=== PATIENT | female | born 2000 | race Caucasian/White ===

== ENCOUNTER 2020-03-16 06:44 | Emergency (ER) | payer OTHER, SELFPAY ==
[2020-03-16 06:53] VITALS: BP 159/84; PULSE 83; RESP 16; TEMP 36.2; O2SAT 96; BMI 39.8
--- NOTE | 2020-03-16 07:14 | ED_ITS ---
HPI - Abdominal Pain General: Chief Complaint: Abdominal Pain Stated Complaint: BLOOD IN STOOL AND BACK PAIN Time Seen by Provider: 03/16/20 07:06 History of Present Illness: HPI narrative: Patient is a 20-year-old female who comes to the ED with left sided lower back pain and blood in the stool. Patient says this morning when she woke up she went to the bathroom and had a bowel movement. She said there was a little discomfort and mild straining when she had her bowel movement. She said there was a lot of red blood in the toilet afterwards. Patient is only had one episode of blood in her stool. Patient does complain of recent rectal itching. Patient said a couple days ago she had a bowel movement and when she wiped there was bright red blood, but no red blood in stool or toilet. She also describes having back pain that is predominantly on the left side and is located between upper lumbar and lower thoracic region. She rates the pain a 6 out of 10 and has not had any pain meds such as Tylenol or ibuprofen before she arrived to the ED. Endorses some nausea. Denies any fever, constipation, dysuria, hematuria, vaginal discharge or vaginal bleeding. Patient says she has POCS and rarely has periods. Denies being on her period. Denies any preceding symptoms last night or the day before. Associated Symptoms: Reports hematochezia; Denies chills, constipation, diarrhea, dysuria, fever(s), hematuria, nausea and vomiting Review of Systems Const: Denies: fever(s), chills or fatigue Eyes: Denies: change in vision or eye discomfort ENMT: Denies: throat pain, odynophagia, nasal discharge or nasal congestion Card: Denies: chest pain, palpitations, edema, swelling of feet/ankles, dyspnea on exertion or orthopnea Resp: Denies: dyspnea, productive cough or non-productive cough GI: Reports: pain on defecation, rectal pain, rectal itching and hematochezia; Denies: abdominal pain, nausea, vomiting, diarrhea or constipation : Denies: flank pain, dysuria or hematuria Musc: Reports: back pain (Left side- between upper lumbar and lower thoracic); Denies: neck pain or extremity swelling Skin/Breast: Denies: rash or new lesions Neuro: Denies: headache(s), numbness in extremities or weakness in extremities [facility] ED PFSH: Social History Smoking and tobacco status: never smoked Physical Exam Const: COMMON NORMALS: no acute distress, patient oriented x3 and alert GENERAL APPEARANCE: cooperative and comfortable NUTRITIONAL APPEARANCE: overweight HENMT: COMMON NORMALS: normocephalic HEAD & SCALP: normocephalic MOUTH: Normal oral and palatal mucosa present THROAT: posterior oropharynx normal and uvula midline Eye: COMMON NORMALS: Equal, round and reactive pupils present PUPIL: Yes Equal, round and reactive pupils present Neck/C-Spine: COMMON NORMALS: supple GENERAL: Yes normal visual inspection Resp: COMMON NORMALS: normal respiratory effort, No retractions, No use of accessory muscles and clear to auscultation bilaterally AUSCULTATION: clear to auscultation bilaterally Cardio: COMMON NORMALS: regular rate, regular rhythm, S1 normal heart sound present, S2 normal heart sound present, No gallops present (Cardio), No clicks present (Cardio), No murmurs present (Cardio) and Peripheral pulses 2+ throughout RATE: regular rate RHYTHM: regular rhythm HEART SOUNDS: S1 normal heart sound present and S2 normal heart sound present PERIPHERAL PULSES: Peripheral pulses 2+ throughout GI: COMMON NORMALS: Normal to inspection, nondistended, normoactive bowel sounds present, Soft to palpation, non-tender and no masses INSPECTION: Yes central obesity AUSCULTATION: Yes normoactive bowel sounds PALPATION: Yes Soft to palpation RECTAL EXAM: visual inspection normal (No visible red blood.), normal sphincter tone, heme positive stool (No visible blood seen upon digital rectal exam. Fecal occult test was positive for blood.) trace, External hemorrhoid(s) present, Internal hemorrhoid(s) present and hemorrhoids External hemorrhoid(s): Yes Internal hemorrhoid(s): Yes : BLADDER/KIDNEY EXAM: Yes CVA tenderness on the left Back/Pelvis: GENERAL BACK: Yes CVA tenderness Extremity: COMMON NORMALS: normal to inspection and no pedal edema Neuro: COMMON NORMALS: patient oriented x3 SENSORIUM/ORIENTATION: Yes alert GAIT: Yes Normal gait present Skin: COMMON NORMALS: no rashes or lesions noted GENERAL SKIN EXAM: no rashes or lesions noted and dry skin Procedures Stool Hemoccult Procedural Steps Taken: stool placed in appropriate test area, developer placed on stool and control areas and controls appropriately positive and negative Hemoccult result: positive Additional Comments: Digital rectal exam was performed to obtain stool sample for test. Course Vital Signs: Vital signs: Vital Signs Temperature 97.1 F L 03/16/20 06:53 Pulse Rate 83 03/16/20 06:53 Respiratory Rate 16 03/16/20 06:53 Blood Pressure 159/84 03/16/20 06:53 Pulse Oximetry 96 03/16/20 06:53 MDM - Abdominal Pain MDM Narrative: Medical decision making narrative: Patient is a 20-year-old female comes to the ED with left flank pain and blood in stool and on toilet paper when she wiped. Patient also states she has had some rectal itching recently. Physical exam was remarkable for left CVA tenderness. Digital rectal exam showed internal and external hemorrhoids. No visible red blood. CBC and CMP were unremarkable. UA showed blood in the urine. Fecal Hemoccult test was positive. CT kidney stone. Patient was diagnosed with hemorrhoids and lumbar strain.. She was told to eat high-fiber foods such as fruits and vegetables and to try to get 20 to 30 g of fiber daily. Drink about 1/2 to 2 L of water per day. Take sitz bath and to apply [id number] 1% hydrocortisone cream on rectum to help with itching. Take ibuprofen for back pain. Apply cold pack or heating pad for relief and stretch lower back daily. Follow-up with your PCP Lab Data: Attestation: I reviewed the patient's lab results. Labs: Lab Results 03/16/20 03/16/20 03/16/20 Range/Units 07:16 07:16 07:16 WBC 9.0 (4.5-13.0) 10^3/ uL RBC 4.49 (4.1-5.3) 10^6/u L Hgb 12.9 (11.5-15.3) g/dL Hct 40.7 (37.0-47.0) % MCV 90.6 (81-99) fL MCH 28.7 (28.0-34.0) pg MCHC 31.7 (30.0-36.0) g/dL RDW 12.7 (12.1-15.1) % Plt Count 338 (130-400) 10^3/c mm MPV 10.5 H (7.4-10.4) fL Neut % (Auto) 51.6 % Lymph % (Auto) 40.5 % [place] % (Auto) 5.7 % Eos % (Auto) 1.0 % Baso % (Auto) 0.6 % Neut # (Auto) 4.6 (1.8-8.0) 10^3/u L Lymph # (Auto) 3.6 (1.5-6.5) 10^3/u L [place] # (Auto) 0.5 (0.2-0.9) 10^3/u L Eos # (Auto) 0.1 (0.0-0.8) 10^3/u L Baso # (Auto) 0.1 (0.0-0.1) 10^3/u L Nucleated RBC % (a uto) 0 % Nucleated RBCs # 0.0 /100WBC Sodium 141 (136-145) mmol/L Potassium 4.2 (3.5-5.1) mmol/L Chloride 105 (98-107) mmol/L Carbon Dioxide 24 (22-29) mmol/L Anion Gap 16.2 (5-19) BUN 12 (6-20) mg/dL Creatinine 0.6 (0.5-0.9) mg/dL GFR Calculation 127.5 (90-130) mL/min Glucose 112 (65-115) mg/dL Calculated Osmolal ity 289 (285-295) mOsm/k g Calcium 9.8 (8.5-10.5) mg/dL Total Bilirubin 0.2 (0.15-1.2) mg/dL AST 14 (0-32) U/L ALT 15 (0-33) U/L Alkaline Phosphata se 70 (35-105) IU/L Total Protein 7.3 (6.6-8.7) g/dL Albumin 4.4 (3.5-5.2) g/dL Globulin 2.9 (1.3-4.6) g/dL Lipase 33 (13-60) U/L HCG, Qual Negative (Negative) Urine Color (Yellow) Urine Appearance (CLEAR) Urine pH (5-7) Ur Specific Gravit y (1.005-1.030) Urine Protein (Negative) Urine Glucose (UA) (Normal) Urine Ketones (Negative) Urine Blood (Negative) Urine Nitrate (Negative) Urine Bilirubin (NEGATIVE) Urine Urobilinogen (Negative) mg/dL Ur Leukocyte Jackie ase (Negative) Urine RBC (0-2) /hpf Urine WBC (0-5) /hpf Ur Squamous Epith Cells (0-5) Urine Bacteria (NONE) Urine Mucus 03/16/20 Range/Units 07:43 WBC (4.5-13.0) 10^3/ uL RBC (4.1-5.3) 10^6/u L Hgb (11.5-15.3) g/dL Hct (37.0-47.0) % MCV (81-99) fL MCH (28.0-34.0) pg MCHC (30.0-36.0) g/dL RDW (12.1-15.1) % Plt Count (130-400) 10^3/c mm MPV (7.4-10.4) fL Neut % (Auto) % Lymph % (Auto) % [place] % (Auto) % Eos % (Auto) % Baso % (Auto) % Neut # (Auto) (1.8-8.0) 10^3/u L Lymph # (Auto) (1.5-6.5) 10^3/u L [place] # (Auto) (0.2-0.9) 10^3/u L Eos # (Auto) (0.0-0.8) 10^3/u L Baso # (Auto) (0.0-0.1) 10^3/u L Nucleated RBC % (a uto) % Nucleated RBCs # /100WBC Sodium (136-145) mmol/L Potassium (3.5-5.1) mmol/L Chloride (98-107) mmol/L Carbon Dioxide (22-29) mmol/L Anion Gap (5-19) BUN (6-20) mg/dL Creatinine (0.5-0.9) mg/dL GFR Calculation (90-130) mL/min Glucose (65-115) mg/dL Calculated Osmolal ity (285-295) mOsm/k g Calcium (8.5-10.5) mg/dL Total Bilirubin (0.15-1.2) mg/dL AST (0-32) U/L ALT (0-33) U/L Alkaline Phosphata se (35-105) IU/L Total Protein (6.6-8.7) g/dL Albumin (3.5-5.2) g/dL Globulin (1.3-4.6) g/dL Lipase (13-60) U/L HCG, Qual (Negative) Urine Color Yellow (Yellow) Urine Appearance Clear (CLEAR) Urine pH 5.0 (5-7) Ur Specific Gravit y 1.025 (1.005-1.030) Urine Protein Neg (Negative) Urine Glucose (UA) Norm (Normal) Urine Ketones Negative (Negative) Urine Blood 2+ H (Negative) Urine Nitrate Negative (Negative) Urine Bilirubin Neg (NEGATIVE) Urine Urobilinogen Norm (Negative) mg/dL Ur Leukocyte Jackie ase Negative (Negative) Urine RBC 0-4 H (0-2) /hpf Urine WBC None (0-5) /hpf Ur Squamous Epith Cells 10-15 H (0-5) Urine Bacteria 1+ H (NONE) Urine Mucus Trace Imaging Data ^: CT Abd/Pel: Attestation: I personally reviewed and interpreted this imaging study as follows: Radiologist's impression: [place] [address] CT Scan Report Signed Patient: Leora Farooq Unit #: [id number] : 2000 Age/Sex: 20 / F ADM Date: 03/16/20 Loc: ER Room/Bed: Attending Dr: Ordering Provider/Ordering MD: Antonio Merino Date of Service: 03/16/20 Procedure(s): CT kidney stone 77719 Accession Number(s): [id number] Report Number: [id number] WS: [id number] CT kidney stone [id number] REASON FOR EXAM: Left flank pain and blood in the urine. IV CONTRAST ADMINISTERED: None. TOTAL EXAM DLP: 1495.[address] scans at [facility] use at least one of these dose optimization techniques: automated exposure control; mA and/or kV adjustment per patient size (includes targeted exams where dose is matched to clinical indication); or iterative reconstruction. FINDINGS: The lower lung joaquin were normal. The liver showed no infiltrating changes. The gallbladder was normal. The pancreas head, body, tail were normal. The spleen and stomach aorta inferior vena cava were normal. Both the right and left adrenal glands are normal. Both kidneys were smooth in outline showed no masses. No stones or hydronephrosis or hydroureters. The ureters were patent down to the bladder. The large and small bowel patterns were normal. Retroperitoneal area was normal. In the pelvis no diverticulosis or diverticulitis. The uterus was normal in size deviated slightly to the left of midline in the ovaries appear to be normal. The urinary bladder show no filling defects or masses. The rectum was normal. CT/CT kidney stone [id number] IMPRESSION: Normal CT of the abdomen and pelvis No evidence of abnormalities of the kidneys ureter bladder. Dictated By: Jakob Bates DO Signed By: Jakob Bates DO Signed Date/Time: 03/16/20846 DD/ 2 Discharge Plan Discharge Patient Disposition: Home, Self-Care Clinical Impression: Hemorrhoids Qualifiers: Hemorrhoid type: first degree Qualified Code(s): K64.0 - First degree hemorrhoids Lumbar strain Qualifiers: Encounter type: initial encounter Qualified Code(s): S39.012A - Strain of muscle, fascia and tendon of lower back, initial encounter Condition: Stable Discharge Orders: Discharge Order (Routine); Ordered 03/16/20 Ordered By: Antonio Merino Referrals: Elijah Arevalo DO [Primary Care Provider] - Discharge Diet: As Directed Discharge Activity: Resume usual activity Patient Instructions: Hemorrhoids (ED), Low Back Strain (ED) Activity Restrictions/Additional Instructions: Call your PCP and set up a follow-up appointment in 7 to 10 days for reevaluation. Take sitz bath daily and apply [id number] 1% hydrocortisone cream to rectum to help with itching. Eat a high-fiber diet (20-30g daily), including fruits and vegetables and drink plenty of water daily. Take ibuprofen to help with back pain and apply cold pack and/or heat pad on back to help with symptoms. Coding Level of Care Code ED Bailer Operators Supervisor for Sandeep Fwd Exam Comprehensive
[2020-03-16 07:28] LABS: Basophils # 0.1 10^3/uL (0.0-0.1); Basophils % 0.6 %; Eosinophils # 0.1 10^3/uL (0.0-0.8); Hematocrit 40.7 % (37.0-47.0); Hemoglobin 12.9 g/dL (11.5-15.3); Lymphocytes # 3.6 10^3/uL (1.5-6.5); Lymphocytes % 40.5 %; Mean Corpuscular HGB Conc 31.7 g/dL (30.0-36.0); Mean Corpuscular Hemoglobin 28.7 pg (28.0-34.0); Mean Corpuscular Volume 90.6 fL (81-99); Mean Platelet Volume 10.5 fL (7.4-10.4); Monocytes # 0.5 10^3/uL (0.2-0.9); Monocytes % 5.7 %; Neutrophils # 4.6 10^3/uL (1.8-8.0); Neutrophils % 51.6 %; Nucleated Red Blood Cells % 0 %; Platelet Count 338 10^3/cmm (130-400); Red Blood Count 4.49 10^6/uL (4.1-5.3); Red Cell Distribution Width 12.7 % (12.1-15.1)
[2020-03-16 07:38] LABS: HCG, Serum Qual Negative (Negative)
[2020-03-16 07:45] LABS: Alanine Aminotransferase 15 U/L (0-33); Albumin Level 4.4 g/dL (3.5-5.2); Alkaline Phosphatase 70 IU/L (35-105); Anion Gap 16.2 (5-19); Aspartate Amino Transferase 14 U/L (0-32); Blood Urea Nitrogen 12 mg/dL (6-20); Calcium 9.8 mg/dL (8.5-10.5); Carbon Dioxide 24 mmol/L (22-29); Chloride 105 mmol/L (98-107); Globulin 2.9 g/dL (1.3-4.6); Glomerular Filtration Rate 127.5 mL/min (90-130); Glucose 112 mg/dL (65-115); Lipase 33 U/L (13-60); Osmolality Calculated 289 mOsm/kg (285-295); Potassium 4.2 mmol/L (3.5-5.1); Sodium 141 mmol/L (136-145); Total Bilirubin 0.2 mg/dL (0.15-1.2); Total Protein 7.3 g/dL (6.6-8.7)
[2020-03-16] MEDS: ondansetron 2 mg/ML SDV 2 mL 4 MG IVP (07:47)
[2020-03-16] MEDS: sodium chloride 0.9% 1,000 ML 999 ML IV (07:47)
[2020-03-16] MEDS: ibuprofen 600 mg Tablet PO (08:05)
[2020-03-16 08:25] LABS: Bilirubin Urine Neg (NEGATIVE); Blood Urine 2+ (Negative); Glucose Urine UA Norm (Normal); Ketones Urine Negative (Negative); Leukocyte Esterase Urine Negative (Negative); Nitrate Urine Negative (Negative); Protein Urine Neg (Negative); Specific Gravity, Urine 1.025 (1.005-1.030); Urine Appearance Clear (CLEAR); Urine Color Yellow (Yellow); Urobilinogen Urine Norm (Negative)
--- NOTE | 2020-03-16 08:30 | CT_ITS ---
WS: [id number] CT kidney stone [id number] REASON FOR EXAM: Left flank pain and blood in the urine. IV CONTRAST ADMINISTERED: None. TOTAL EXAM DLP: 1495.[address] scans at [facility] use at least one of these dose optimization techniques: automat ed exposure control; mA and/or kV adjustment per patient size (includes targeted exams where dose is matched to clinical indication); or iterative reconstruction. FINDINGS: The lower lung joaquin were normal. The liver showed no infiltrating changes. The gallbladder was normal. The pancreas head, body, tail were normal. The spleen and stomach aorta inferior vena cava were normal. Both the right and left adrenal glands are normal. Both kidneys were smooth in outline showed no masses. No stones or hydronephrosis or hydroureters. The ureters were patent down to the bladder. The large and small bowel patterns were normal. Retroperitoneal area was normal. In the pelvis no diverticulosis or diverticulitis. The uterus was normal in size deviated slightly to the left of midline in the ovaries appear to be normal. The urinary bladder show no filling defects or masses. The rectum was normal. CT/CT kidney stone [id number] IMPRESSION: Normal CT of the abdomen and pelvis No evidence of abnormalities of the kidneys ureter bladder.
[2020-03-16 08:37] LABS: Add Urine Culture? No; Bacteria Urine 1+; Mucus Urine TRACE; RBC Urine 0-4 /hpf (0-2)
--- NOTE | 2020-03-16 08:54 | PC.NURSE ---
Chaperoned rectal exam with ALF Gillespie. Hemoccult mildly positive.
--- NOTE | 2020-03-16 08:55 | PC.NURSE ---
Read and agree with assessment
[2020-03-16 09:12] VITALS: BP 136/82; PULSE 68; RESP 18; O2SAT 97
== END 2020-03-16 09:12 | disposition home or self-care (01) ==
PROVIDERS: Emergency Provider Physician Assistant; PCP Electrodiagnostic Medicine
DX: S39.012A Strain of muscle, fascia and tendon of lower back, initial encounter (principal); K64.0 First degree hemorrhoids
CPT/HCPCS: 12345; 74176; 80053; 81001; 82272; 83690; 84703; 85025; 96361; 96374; 96375; 99282; 99283; J2405; J7030

== ENCOUNTER → 2020-08-14 10:05 | Outpatient (BNVA) | payer OTHER, SELFPAY | PROVIDERS: PCP Electrodiagnostic Medicine; Visit Provider Nurse Practitioner Family | DX: J02.9 Acute pharyngitis, unspecified (principal) | CPT/HCPCS: 87071; 87880 ==

== ENCOUNTER 2024-08-05 21:19 | Emergency (ER) | payer OTHER, SELFPAY ==
--- NOTE | 2024-08-05 21:21 | XRR_ITS ---
PROCEDURE INFORMATION: Exam: XR Chest Exam date and time: 08/05/2024 9:40 PM Age: 24 years old Clinical indication: Pain; Chest pressure; Additional info: Chest pain TECHNIQUE: Imaging protocol: Radiologic exam of the chest. Views: 1 view. COMPARISON: CT kidney stone [id number] 03/16/2020 8:32 AM FINDINGS: Lungs: Unremarkable. No consolidation. Pleural spaces: Unremarkable. No pleural effusion. No pneumothorax. Heart/Mediastinum: Unremarkable. No cardiomegaly. Bones/joints: Unremarkable. XR/XR chest 1V portable [id number] IMPRESSION: No acute findings.
--- NOTE | 2024-08-05 21:21 | ECG_ITS ---
[facility] [employer] Test Date: 2024-08-05 Pat Name: Leora Farooq Department: Room: Gender: Female Cider Maker: : 2000 Requested By: Moises Gabriel Order Number: [id number] Navid MD: Farhad Aguirre M.D. Measurements Intervals [place] Rate: 90 P: 14 ND: 128 QRS: -12 QRSD: 86 T: 16 QT: 370 QTc: 455 Interpretive Statements SINUS RHYTHM LOW QRS VOLTAGE IN PRECORDIAL LEADS [QRS DEFLECTION < 1.0 mV IN CHEST LEADS] POSSIBLE ANTERIOR MYOCARDIAL INFARCTION , PROBABLY OLD [30 ms Q WAVE IN V3/V4, OR R < 0.2 mV IN V4] No previous ECG available for comparison Electronically Signed On 08-07-2024 21:33:52 CAUSTICISER by Farhad Aguirre M.D. [email or web address]
[2024-08-05 21:23] VITALS: BP 137/84; PULSE 89; RESP 17; TEMP 36.9; O2SAT 93; BMI 45.3
[2024-08-05 21:43] VITALS: BP 145/98; PULSE 101; RESP 13; O2SAT 100
--- NOTE | 2024-08-05 22:02 | ED_ITS ---
HPI - Chest Pain 2 General: Chief Complaint: Chest Pain Stated Complaint: chest pain Time Seen by Provider: 08/05/24 21:20 History of Present Illness: Presents to the ER with complaints of intermittent left-sided chest pain that is worse when she inhales, radiates down the left side of her chest. Chest pain started about 30 minutes prior to arrival. Patient does report cardiac history with prior CO in January of this year. Patient denies using any nitro or aspirin prior to arrival. Patient is a diabetic. Patient said the pain is almost resolved now. But is reproducible with taking a big deep breath or palpation. Related Data Home Medications Medication Instructions Recorded Confirmed control PO 08/14/20 08/14/20 metformin 500 mg tablet 500 mg PO BID 08/14/20 08/14/20 Allergies Allergy/AdvReac Type Severity Reaction Status Date / Time No Known Allergies Allergy Verified 08/05/24 21:37 Review of Systems 2 General: Reports: 10 or more systems reviewed and unremarkable except in HPI and below PFSH ED 2 PFSH: Social History Smoking and tobacco/nicotine status: never used tobacco/nicotine Physical Exam 2 HENMT: COMMON NORMALS: normocephalic, atraumatic, hearing grossly normal bilaterally, external ears normal, Normal external nose present and moist oral mucous membranes HEAD & SCALP: normocephalic and atraumatic NOSE: Normal external nose present EXTERNAL EAR: Yes external ears normal Neck/C-Spine: COMMON NORMALS: full ROM, no lymphadenopathy, supple, no meningeal signs, no JVD and Thyroid normal THYROID: Thyroid normal Chest: COMMONS NORMALS: normal inspection of the chest; negative for normal palpation of entire chest wall (Tenderness with palpation of left anterior chest wall reproduces pain) Resp: COMMON NORMALS: normal respiratory effort, No retractions, No use of accessory muscles and clear to auscultation bilaterally AUSCULTATION: clear to auscultation bilaterally Cardio: COMMON NORMALS: no JVD, regular rate, regular rhythm, S1 normal heart sound present, S2 normal heart sound present, No gallops present (Cardio), No clicks present (Cardio), No murmurs present (Cardio) and No rub (Cardio) R ATE: regular rate RHYTHM: regular rhythm HEART SOUNDS: S1 normal heart sound present and S2 normal heart sound present GI: COMMON NORMALS: Normal to inspection, nondistended, normoactive bowel sounds present, Soft to palpation, non-tender, No hepatosplenomegaly present and no masses PALPATION: Yes Soft to palpation and Yes No hepatosplenomegaly present Neuro: MENINGEAL SIGNS: Yes no meningeal signs Course 2 Vital Signs: Vital signs: Vital Signs Temperature 98.5 F 08/05/24 21:23 Pulse Rate 75 08/06/24 02:30 Respiratory Rate 25 H 08/06/24 02:30 Blood Pressure 130/75 08/06/24 02:30 Pulse Oximetry 99 08/06/24 02:30 Oxygen Delivery Me thod Room Air 08/05/24 22:43 MDM - Chest Pain Medical Decision Making BMP was redrawn second time and sodium was normalized. Probably was a lab error the first time. Patient's chest pain workup was negative. It is thought the patient has chest wall pain or costochondritis. Patient be discharged home. Medical Records I reviewed the patient's medical records. Lab Data I reviewed the patient's lab results. 08/05/24 21:55 08/06/24 02:04 Radiology Impressions Chest X-Ray 08/05/24 21:21 IMPRESSION: No acute findings. Laboratory Results WBC 9.35 10^3/uL (3.29-11.43) 08/05/24 21:55 RBC 4.60 10^6/uL (3.85-5.65) 08/05/24 21:55 Hgb 13.40 g/dL (11.27-16.99) 08/05/24 21:55 Hct 40.2 % (36-47) 08/05/24 21:55 MCV 87.4 fl (85-98) 08/05/24 21:55 MCH 29.1 pg (27-33) 08/05/24 21:55 MCHC 33.3 g/dL (30-55) 08/05/24 21:55 RDW 13.1 % (12.1-15.1) 08/05/24 21:55 Plt Count 351 10^3/cmm (157-399) 08/05/24 21:55 MPV 10.2 fL (7.4-10.4) 08/05/24 21:55 Neut % (Auto) 49.3 % 08/05/24 21:55 Lymph % (Auto) 42.8 % 08/05/24 21:55 [place] % (Auto) 5.9 % 08/05/24 21:55 Eos % (Auto) 1.4 % 08/05/24 21:55 Baso % (Auto) 0.3 % 08/05/24 21:55 Neut # (Auto) 4.61 10^3/uL (1.8-7.7) 08/05/24 21:55 Lymph # (Auto) 4.0 10^3/uL (0.8-4.8) 08/05/24 21:55 [place] # (Auto) 0.6 10^3/uL (0.2-0.9) 08/05/24 21:55 Eos # (Auto) 0.1 10^3/uL (0.0-0.8) 08/05/24 21: Baso # (Auto) 0.0 10^3/uL (0.0-0.1) 08/05/24 21: Nucleated RBC % (auto) 0 % 08/05/24 21: Nucleated RBCs # 0.0 /100WBC 08/05/24 21:55 Sodium 133 mmol/L (136-145) L D 08/06/24 02:04 Potassium 4.1 mmol/L (3.5-5.1) 08/06/24 02:04 Chloride 99 mmol/L (98-107) 08/06/24 02:04 Carbon Dioxide 22 mmol/L (22-29) 08/06/24 02:04 Anion Gap 16.1 (5-19) 08/06/24 02:04 BUN 12 mg/dL (6-20) 08/06/24 02:04 Creatinine 0.6 mg/dL (0.5-0.9) 08/06/24 02:04 GFR Calculation 122.8 mL/min (90-130) 08/06/24 02:04 Glucose 102 mg/dL (65-115) 08/06/24 02:04 Calculated Osmolality 276 mOsm/kg (285-295) L 08/06/24 02:04 Calcium 9.2 mg/dL (8.5-10.5) 08/06/24 02:04 Total Bilirubin 0.2 mg/dL (0.15-1.2) 08/05/24 21:55 AST 17 U/L (0-32) 08/05/24 21:55 ALT 22 U/L (0-33) 08/05/24 21:55 Alkaline Phosphatase 85 U/L (35-105) 08/05/24 21:55 Troponin T Baseline < 6 ng/L (0-10) 08/05/24 21:55 Troponin T 120 Minute 6.00 ng/L (0-10) 08/06/24 00:19 Delta Troponin T 0.27916 ABS# (0-10) 08/06/24 00:19 Total Protein 8.8 g/dL (6.6-8.7) H 08/05/24 21:55 Albumin 4.8 g/dL (3.5-5.2) 08/05/24 21:55 Globulin 4.0 g/dL (1.3-4.6) 08/05/24 21:55 Urine Color Yellow (Yellow) 08/06/24 00:45 Urine Appearance Clear (CLEAR) 08/06/24 00:45 Urine pH 5.5 (5-7) 08/06/24 00:45 Ur Specific [place] 1.018 (1.005-1.030) 08/06/24 00:45 Urine Protein Negative (Negative) 08/06/24 00:45 Urine Glucose (UA) Negative (Normal) 08/06/24 00:45 Urine Ketones Negative (Negative) 08/06/24 00:45 Urine Blood Negative (Negative) 08/06/24 00:45 Urine Nitrate Negative (Negative) 08/06/24 00:45 Urine Bilirubin Negative (Negative) 08/06/24 00:45 Urine Urobilinogen 0.2 mg/dL (Negative) 08/06/24 00:45 Ur Leukocyte Esterase Trace (Negative) A 08/06/24 00:45 Urine RBC 0-2 /hpf (0-2) 08/06/24 00:45 Urine WBC 6-10 /hpf (0-5) 08/06/24 00:45 Ur Squamous Epith Cells 0-5 /hpf (0-5) 08/06/24 00:45 Amorphous Sediment Not Reportable 08/06/24 00:45 Urine Bacteria None seen /hpf (NONE) 08/06/24 00:45 Hyaline Casts 0.40 /lpf 08/06/24 00:45 All radiology interpretation(s) finalized by discharge Discharge Plan Discharge Patient Disposition: Home Clinical Impression: Atypical chest pain Condition: Stable Prescriptions: No Action metformin 500 mg tablet 500 mg PO BID control PO Discharge Orders: Discharge ED (Routine); Ordered 08/06/24 Ordered By: Moises Gabriel Patient Instructions: Chest Pain - Noncardiac Activity Restrictions/Additional Instructions: Thank you for choosing [facility] for your healthcare needs today. Please realize that you were seen in the emergency department and that we are providing you with an emergency medical screening exam and this may not be a complete and all exclusive of all testing and/or medical workup we may need to determine your element or severity of your illness. It is very important that you follow-up as instructed with your primary care provider or specialist for the additional evaluation and to discuss your medical treatment plan. You may return to the emergency department should you have concerns or if your condition changes or worsens in any way. Coding Level of Care Code ED Flour Distributor for Sandeep Gonzalez
[2024-08-05 22:07] LABS: Basophils % 0.3 %; Eosinophils # 0.1 10^3/uL (0.0-0.8); Eosinophils % 1.4 %; Hematocrit 40.2 % (36-47); Lymphocytes % 42.8 %; Mean Corpuscular HGB Conc 33.3 g/dL (30-55); Mean Corpuscular Hemoglobin 29.1 pg (27-33); Mean Corpuscular Volume 87.4 fl (85-98); Mean Platelet Volume 10.2 fL (7.4-10.4); Monocytes # 0.6 10^3/uL (0.2-0.9); Monocytes % 5.9 %; Neutrophils # 4.61 10^3/uL (1.8-7.7); Neutrophils % 49.3 %; Nucleated Red Blood Cells % 0 %; Platelet Count 351 10^3/cmm (157-399); Red Cell Distribution Width 13.1 % (12.1-15.1); White Blood Count 9.35 10^3/uL (3.29-11.43)
[2024-08-05 22:25] LABS: Troponin(5th) Baseline < 6 ng/L (0-10)
[2024-08-05 22:43] VITALS: BP 124/88; PULSE 82; RESP 20; O2SAT 99
[2024-08-05 22:47] LABS: Alanine Aminotransferase 22 U/L (0-33); Albumin Level 4.8 g/dL (3.5-5.2); Alkaline Phosphatase 85 U/L (35-105); Aspartate Amino Transferase 17 U/L (0-32); Blood Urea Nitrogen 14 mg/dL (6-20); Calcium 10.2 mg/dL (8.5-10.5); Carbon Dioxide 23 mmol/L (22-29); Chloride 118 mmol/L (98-107); Creatinine Clr Calc Pharmacy 152.3761; Glomerular Filtration Rate 102.8 mL/min (90-130); Glucose 102 mg/dL (65-115); Osmolality Calculated 327 mOsm/kg (285-295); Sodium 158 mmol/L (136-145); Total Bilirubin 0.2 mg/dL (0.15-1.2); Total Protein 8.8 g/dL (6.6-8.7)
[2024-08-05 22:58] LABS: Anion Gap 21.8 (5-19); Potassium 4.8 mmol/L (3.5-5.1)
[2024-08-05 23:00] VITALS: BP 130/79; PULSE 79; RESP 21; O2SAT 100
--- NOTE | 2024-08-05 23:21 | ECG_ITS ---
[facility] Test Date: 2024-08-05 Pat Name: Leora Farooq Department: Room: Gender: Female Numerical Analysis Group Manager: : 2000 Requested By: Moises Gabriel Order Number: [id number] Reading MD: COLETTE BEASLEY Measurements Intervals [place] Rate: 77 P: 14 WI: 154 QRS: -5 QRSD: 81 T: -1 QT: 387 QTc: 440 Interpretive Statements SINUS RHYTHM LOW QRS VOLTAGE IN PRECORDIAL LEADS [QRS DEFLECTION < 1.0 mV IN CHEST LEADS] Compared to ECG 08/05/2024 21:26:01 Myocardial infarct finding no longer present Electronically Signed On 08-08-2024 00:35:43 ELECTRIC MULE DRIVER by COLETTE BEASLEY [email or web address]
[2024-08-06] VITALS: BP 96/76; PULSE 78; O2SAT 100
[2024-08-06 00:49] LABS: Troponin 5 2HR Delta 0.00001 ABS# (0-10)
[2024-08-06 00:56] LABS: Bilirubin Urine Negative (Negative); Blood Urine Negative (Negative); Glucose Urine UA Negative (Normal); Ketones Urine Negative (Negative); Leukocyte Esterase Urine Trace (Negative); Nitrate Urine Negative (Negative); Protein Urine Negative (Negative); Specific Gravity, Urine 1.018 (1.005-1.030); Urine Appearance Clear (CLEAR); Urine Color Yellow (Yellow); Urobilinogen Urine 0.2 mg/dL (Negative); pH Urine 5.5 (5-7)
[2024-08-06 00:58] LABS: Add Urine Microscopic? YES; Bacteria Urine None Seen /hpf; RBC Urine 0-2 /hpf (0-2); Squamous Epithelial Cell Urine 0-5 /hpf (0-5)
[2024-08-06 01:00] VITALS: BP 137/93; PULSE 73; O2SAT 100
[2024-08-06] MEDS: dextrose 5% 1,000 ML 150 ML IV (01:01)
[2024-08-06 02:30] VITALS: BP 130/75; PULSE 75; RESP 25; O2SAT 99
[2024-08-06 02:32] LABS: Blood Urea Nitrogen 12 mg/dL (6-20); Calcium 9.2 mg/dL (8.5-10.5); Carbon Dioxide 22 mmol/L (22-29); Chloride 99 mmol/L (98-107); Creatinine Clr Calc Pharmacy 177.7721; Glomerular Filtration Rate 122.8 mL/min (90-130); Glucose 102 mg/dL (65-115); Osmolality Calculated 276 mOsm/kg (285-295); Sodium 133 mmol/L (136-145)
[2024-08-06 02:35] LABS: Anion Gap 16.1 (5-19); Potassium 4.1 mmol/L (3.5-5.1)
[2024-08-06 03:02] VITALS: BP 139/82; PULSE 78; O2SAT 100
[2024-08-07 12:49] LABS: Osmolality Urine 652 mOsm/kg (50-1200)
== END 2024-08-06 02:59 | disposition home or self-care (01) ==
PROVIDERS: Emergency Provider Emergency Medicine
DX: R07.89 Other chest pain (principal); Z79.84 Long term (current) use of oral hypoglycemic drugs
CPT/HCPCS: 36415; 71045; 80048; 80053; 81001; 83935; 84484; 85025; 93005; 96360; 96361; 99285; J7070

== ENCOUNTER 2025-05-18 19:25 | Emergency (ER) | payer OTHER, SELFPAY ==
[2025-05-18 19:28] VITALS: BP 144/95; PULSE 99; RESP 18; TEMP 36.4; O2SAT 97
--- OUTSIDE RECORDS SUMMARY | 2025-05-18 19:31 | XMS_ITS | Clinical Summary ---
Author Organization [facility] Address [address] [place] [address] Care Team Providers Care Real Estate Manager Name Role Phone Elijah Arevalo Primary Care Provider [phone] Allergies No known active allergies Medications naproxen sodium (ALEVE) 220 mg Tablet Take 220 mg by mouth every 4 hours as needed for Pain, Moderate. Active ibuprofen (MOTRIN) 200 mg tablet Take 400 mg by mouth every 6 hours as needed for Pain, Mild. Active cholecalciferol, Vitamin D3, 5,000 unit CapsuleIndications: Multinodular thyroid,Vitamin D insufficiency,PCOS (polycystic ovarian syndrome),Hypertrig lyceridemia,Dysmeta bolic syndrome Take 3 Capsules (15,000 Units) by mouth see administration instructions Every Sunday at 9:00 AM.. 05/16/20 17 Active CYANOCOBALAMIN, VITAMIN B-12, (VITAMIN B-12 ORAL) Take by mouth. Active [id number] 0.18/0.215/0.25 mg-25 mcg tabletIndications:D ysmetabolic syndrome,PCOS (polycystic ovarian syndrome),Hypertrig lyceridemia,Vitamin D insufficiency,Hyper uricemia TAKE 1 TABLET BY MOUTH EVERY DAY *BEGIN ON SUNDAY* 28 Tablet 11 01/04/20 18 Active metFORMIN (GLUCOPHAGE XR) 750 mg Extended Release 24 hour tabletIndications:P COS (polycystic ovarian syndrome),Dysmetabo lic syndrome,Hypertrigl yceridemia,Abnormal weight gain,Obesity peds (BMI >=95 percentile) Take 2 Tablets (1,500 mg) by mouth daily with breakfast. 60 Tablet 6 07/19/20 18 Active fenofibrate nanocrystallized (TRICOR) 145 mg tabletIndications:D ysmetabolic syndrome,Hypertrigl yceridemia,Abnormal weight gain,Obesity peds (BMI >=95 percentile) Take 1 Tablet (145 mg) by mouth daily For elevated triglycerides. 30 Tablet 6 04/21/20 18 Active Active Problems Problem Noted Date Diagnosed Date Hyperuricemia 05/01/2017 Obesity peds (BMI >=95 percentile) 09/29/2016 Abnormal weight gain 09/29/2016 Abnormal thyroid function test 09/29/2016 PCOS (polycystic ovarian syndrome) 09/29/2016 Hypertriglyceridemia 09/29/2016 Multinodular thyroid 09/29/2016 Dysmetabolic syndrome 09/29/2016 Vitamin D insufficiency 09/29/2016 Immunizations Immunization Administration Dates Next Due (M-M-R II/PRIORIX)(12 MO UP) MEASLES, MUMPS AND RUBELLA VIRUS VACCINE, 0.5 ML IM/SUBCUT 06/16/2005,05/30/2001 (VARIVAX)(12 MOS UP)VARICELL A VIRUS VACCINE (PF) 0.5 ML, SUB CUT 02/28/2001 Dt Dtp Dtap Vaccine 06/16/2005, 1,2000,1999 HIB, Unspecified Formulation 05/30/2001,08/14/20 00 Hepatitis B Vaccine 2000,2000 IPV/OPV 06/16/2005,05/30/2001,2000 Social History Tobacco Use Types Packs/Day Years Used Date Smoking Tobacco: Never Alcohol Use Standard Drinks/Week Comments No 0 (1 standard drink = 0.6 oz pur e alcohol) Comments No Sex and Gender Information Value Date Recorded Sex Assigned at Not on file 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 Gender Identity Not on file Sexual Orientation Not on file Last Filed Vital Signs Vital Sign Reading Time Taken Comments Blood Pressure 122/72 04/18/2018 10:13 AM CDT manual bp xl rt Pulse 82 04/18/2018 10:13 AM CDT Temperature 36.8 C (98.2 F) 01/26/2017 8:50 AM CDT Respiratory Rate 18 04/19/2017 12:1 9 PM CDT Oxygen Saturation 97% 01/26/2017 9:0 5 AM CDT Inhaled Oxygen Concentration - - Weight 101.2 kg (223 lb 1.7 oz) 04/18/2018 10:13 AM CDT Height 159.5 cm (5' 2.8 ) 04/18/2018 10 :13 AM CDT Body Mass Index 39.78 04/18/2018 10:13 AM CDT Plan of Treatment Health Maintenance Due Date Last Done Comments HEPATITIS B VACCINES (3 of 3 - 3-dose series) 2000 2000, 2000 DTAP/TDAP/TD VACCINES (5 - Tdap) 02/05/2011 06/16/2005, 05/30/2001, 2000, Additional history exists HPV VACCINES (1 - 3-dose series) 02/05/2015 CERVICAL CANCER SCREENING 02/05/2021 HPV/Cotest (21-29) 02/05/2021 PAP SMEAR 02/05/2021 INFLUENZA VACCINE (#1) 2025 Insurance [facility] PPO [facility] PPO Care Teams Real Estate Manager Relationship Specialty Start Date End Date Elijah Arevalo DO PCP - General Family Practice 06/09/16
--- OUTSIDE RECORDS SUMMARY | 2025-05-18 19:31 | XMS_ITS | Clinical Summary ---
Author Organization [facility] Address [address] [place] [address] Phone Care Team Providers Care General Operations Manager Name Role Phone Pcp, No Primary Care Provider Unavailabl e Allergies No known active allergies Medications metFORMIN (GLUCOPHAGE) 1000 MG tablet Take 1,000 mg by mouth 2 (two) times a day with meals Active gemfibrozil (LOPID) 600 MG tablet Take 600 mg by mouth 2 (two) times a day before meals Active tiZANidine (ZANAFLEX) 4 MG tablet Take one tablet (4 mg total) by mouth every 6 (six) hours as needed 30 tablet 07/14/2023 Active Social History Tobacco Use Types Packs/Day Years Used Date Smoking Tobacco: Every Day E-Cigarette Smokeless Tobacco: Never Tobacco Cessation:Ready to Q uit: Not Asked; Counseling Given: Not Answered Alcohol Use Standard Drinks/Week Comments Never 0 (1 standard drink = 0.6 oz pur e alcohol) AUDIT-C Answer Date Recorded Frequency of Alcohol Consumption Never 01/11/2019 Average Number of Drinks Not on file 019 Frequency of Binge Drinking Not on file 12/30 Intimate Partner Safety Answer Date Rec orded Feels Unsafe at Home or Work/School Unrecognized value 01/28/2024 Feels Threatened by Someone Unrecognized value 0 01/28/2024 Does Anyone Try to Keep You From Having Contact with Others or Doing Things Outside Your Home? Unrecognized value 01/28/2024 Physical Signs of Abuse Present Unrecognized rose ue 01/28/2024 Intimate Partner Safety Not on file 01/28/20 24 Sexually Active Control Partners Comments Never Comments No Sex and Gender Information Value Date Recorded Sex Assigned at Not on file Legal Sex Female 10:00 PM CDT Gender Identity Not on file Sexual Orientation Not on file Last Filed Vital Signs Vital Sign Reading Time Taken Comments Blood Pressure 126/62 02/28/2024 10:46 PM CDT Pulse 134 02/28/2024 10:46 PM CDT Temperature 38.1 C (100.5 F) 02/28/2024 9:27 PM CDT Respiratory Rate 18 02/28/2024 9:27 PM CDT Oxygen Saturation 99% 02/28/2024 10:46 PM CDT Inhaled Oxygen Concentration - - Weight 122.5 kg (270 lb) 02/28/2024 9:27 PM CDT Height 160 cm (5' 3 ) 02/28/2024 9:27 PM CDT Body Mass Index 47.83 02/28/2024 9:27 PM CDT Plan of Treatment Health Maintenance Due Date Last Done Comments Annual Depression Screening 02/05/2011 DTap/Tdap/Td Vaccines (5 - Tdap) 02/05/2011 06/16/2005, 05/30/2001, 2000, Additional history exists HPV Vaccines (1 - 3-dose series) 02/05/2015 Annual Physical 02/05/2018 Hepatitis C Antibody Screen 02/05/2018 Cervical Cancer Screening 02/05/2021 Flu Vaccine (#1) 06/01/2025 Insurance [facility] Care Teams General Operations Manager Relationship Specialty Start Date End Date Pcp, No PCP - General 01/11/19
--- OUTSIDE RECORDS SUMMARY | 2025-05-18 19:31 | XMS_ITS | Clinical Summary ---
Author Organization [facility] Address [address] [place]: [place] [address] Care Team Providers Care Rail Project Engineer Name Role Phone Arevalo Elijah MEDRANO Primary Care Provider [phone] Allergies No known active allergies Medications metFORMIN (GLUCOPHAGE XR) 750 mg Extended Release 24 hour tabletIndications:P COS (polycystic ovarian syndrome),Dysmetabo lic syndrome,Hypertrigl yceridemia,Abnormal weight gain,Obesity peds (BMI >=95 percentile) Take 2 Tablets (1,500 mg) by mouth daily with breakfast. 60 Tablet 6 04/18/20 18 Active fenofibrate nanocrystallized (TRICOR) 145 mg tabletIndications:D ysmetabolic syndrome,Hypertrigl yceridemia,Abnormal weight gain,Obesity peds (BMI >=95 percentile) Take 1 Tablet (145 mg) by mouth daily For elevated triglycerides. 30 Tablet 6 04/21/20 18 Active Norgestimate-Ethiny l estradiol (Ysz-Nb-Jtdjyycu) 0.18/0.215/0.25 mg-25 mcg tabletIndications:D ysmetabolic syndrome,PCOS (polycystic ovarian syndrome),Hypertrig lyceridemia,Vitamin D insufficiency,Hyper uricemia TAKE 1 TABLET BY MOUTH EVERY DAY *BEGIN ON SUNDAY* 28 Tablet 11 01/04/20 18 Active cholecalciferol, Vitamin D3, 125 mcg (5,000 unit) CapsuleIndications: Multinodular thyroid,Vitamin D insufficiency,PCOS (polycystic ovarian syndrome),Hypertrig lyceridemia,Dysmeta bolic syndrome Take 3 Capsules (15,000 Units) by mouth see administration instructions Every Sunday at 9:00 AM.. 05/16/20 17 Active cyanocobalamin, vitamin B-12, (VITAMIN B-12 ORAL) Take by mouth. 18 Active ibuprofen (MOTRIN) 200 mg tablet Take 400 mg by mouth every 6 hours as needed for Pain, Mild. 09/29/20 16 Active naproxen sodium (ALEVE) 220 mg Tablet Take 220 mg by mouth every 4 hours as needed for Pain, Moderate. 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
--- OUTSIDE RECORDS SUMMARY | 2025-05-18 19:31 | XMS_ITS | Encounter Summary ---
Author Organization [facility] Address [address] [place] [address] Care Team Providers Care Nursing Specialist Name Role Phone Elijah Arevalo DO Primary Care Provider [phone] Encounter Details Date Type Department Care Team (Late st Contact Info) Description 01/13/2006 Outpatient Historical HIS IN BED Logan Ordoñez MD [address] [place] [address] [phone] Pain in Joint, Pelvic Region and Thigh (Primary Dx) Social History Tobacco Use Types Packs/Day Years Used Date Smoking Tobacco: Never Assessed Comments Unknown Sex and Gender Information Value Date Recorded Sex Assigned at Not on file 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
--- NOTE | 2025-05-18 19:36 | CTR_ITS ---
PROCEDURE INFORMATION: Exam: CT Abdomen And Pelvis With Contrast Exam date and time: 05/18/2025 8:30 PM Age: 25 years old Clinical indication: Abdominal pain; Periumbilical; Additional info: Rlq pain TECHNIQUE: Imaging protocol: Computed tomography of the abdomen and pelvis with contrast. Radiation optimization: All CT scans at this facility use at least one of these dose optimization techniques: automated exposure control; mA and/or kV adjustment per patient size (includes targeted exams where dose is matched to clinical indication); or iterative reconstruction. Contrast material: OMNI 350; Contrast volume: 100 ml; Contrast route: INTRAVENOUS (IV); COMPARISON: CT kidney stone [id number] 03/16/2020 8:32 AM RADIATION DOSE METRICS: Total DLP (mGy-cm): 1092.76 FINDINGS: Lungs: Lung bases are unremarkable. Liver: The liver is enlarged measuring 20.6 cm in length. Gallbladder and biliary ducts: No intrahepatic or extrahepatic biliary ductal dilatation. The gallbladder is unremarkable with no radioopaque stone. Pancreas: Pancreas is unremarkable. No ductal dilation or peripancreatic inflammation. Spleen: The spleen is unremarkable. Adrenal glands: Adrenal glands are unremarkable. Kidneys and ureters: No hydronephrosis, hydroureter or nephrolithiasis. Stomach and bowel: Stomach is moderately distended. Small and large bowel are normal in caliber without evidence of obstruction. Multiple prominent fluid-filled loops of small bowel. Air-fluid levels are also present in the colon. Diverticulosis without evidence of diverticulitis. Appendix: No evidence of appendicitis. Intraperitoneal space: No free intraperitoneal air. No significant fluid collection. Vasculature: Portal vein is patent. There is no aortic aneurysm. Origins of the celiac, SMA, LAURA and renal arteries are patent. Lymph nodes: No pathologically enlarged lymph nodes (by short axis size criteria). Urinary bladder: Bladder is distended with no focal wall thickening. Reproductive: Uterus is unremarkable for patient's age. Ovaries are enlarged bilaterally, the left measures 4.1 cm in the right measures 3.2 cm. Bones/joints: No acute osseous abnormality. Soft tissues: There is a small fat containing umbilical hernia. CT/CT abdomen pelvis w con* [id number] IMPRESSION: 1. Enterocolitis 2. Enlarged bilateral ovaries with the left measuring 4.1 cm in the right measuring 3.2 cm. 3. Hepatomegaly
--- NOTE | 2025-05-18 19:36 | W.ED.ABDPA2 ---
HPI - Abdominal Pain General: Chief Complaint: Abdominal Pain Stated Complaint: Severe Abd Pain, Sulfur burps, nausea Time Seen by Provider: 05/18/25 19:30 Source: patient Mode of arrival: ambulatory Limitations: no limitations History of Present Illness: 25-year-old female states that she has been having right lower quadrant pain for last 3 days states it is a twisting sharp pain that she rates a 8 out of 10. States she has had pain similar to the past. Denies any abdominal surgeries a past she denies any fever denies any dysuria. Associated Symptoms: Reports nausea; Denies chills, diarrhea, dysuria, fever(s) and vomiting Related Data Home Medications ?Medication ?Instructions ?Recorded ?Confirmed atorvastatin 20 mg tablet (Lipitor) 20 mg PO DAILY 12/21/24 12/31/24 tirzepatide 5 mg/0.5 mL mg SUBCUT 12/21/24 12/31/24 subcutaneous pen injector (Mounjaro) metformin 500 mg tablet 1,000 mg PO BID 12/31/24 12/31/24 Previous Rx's ?Medication ?Instructions ?Recorded ibuprofen 600 mg tablet 600 mg PO TID PRN pain #30 tabs 12/21/24 albuterol sulfate 90 mcg/actuation 2 puff inhalation Q6H PRN 12/31/24 aerosol inhaler (Ventolin HFA) shortness of breath or wheezing #8.5 grams amoxicillin 500 mg-potassium 1 tab PO BID #14 tabs 05/18/25 clavulanate 125 mg tablet (Augmentin) hydrocodone 5 mg-acetaminophen 325 1 tab PO Q6H PRN pain #14 tabs 05/18/25 mg tablet Allergies Allergy/AdvReac Type Severity Reaction Status Date / Time No Known Allergies Allergy Verified 12/31/24 07:56 Review of Systems Const: Denies: fever(s), chills, body aches or change in appetite ENMT: Denies: throat pain or dental pain Card: Denies: chest pain Resp: Denies: dyspnea GI: Reports: abdominal pain and nausea; Denies: vomiting or diarrhea : Denies: dysuria Musc: Denies: neck pain or back pain Skin/Breast: Denies: rash Neuro: Denies: headache(s) PFSH ED PFSH: Medical History History of wheezing Bronchiolitis Social History Smoking and tobacco/nicotine status: never used tobacco/nicotine Physical Exam Const: COMMON NORMALS: no acute distress, patient oriented x3 and healthy appearing HENMT: COMMON NORMALS: normocephalic and atraumatic HEAD & SCALP: normocephalic and atraumatic Eye: COMMON NORMALS: conjunctivae normal CONJUNCTIVA: Yes conjunctivae normal Neck/C-Spine: COMMON NORMALS: full ROM and supple Chest: COMMONS NORMALS: normal inspection of the chest Resp: COMMON NORMALS: normal respiratory effort, No retractions, No use of accessory muscles and clear to auscultation bilaterally AUSCULTATION: clear to auscultation bilaterally Cardio: COMMON NORMALS: regular rate, regular rhythm and No murmurs present (Cardio) RATE: regular rate RHYTHM: regular rhythm GI: COMMON NORMALS: Normal to inspection, nondistended, normoactive bowel sounds present, Soft to palpation and no masses PALPATION: Yes Soft to palpation and Yes Tenderness to palpation present (GI) Details: RLQ Extremity: COMMON NORMALS: normal to inspection and full ROM Neuro: COMMON NORMALS: patient oriented x3, moves all extremities and no focal motor deficits Psych: COMMON NORMALS: mental status grossly normal, Normal thought process present and cooperative THOUGHT PROCESS: Normal thought process present Skin: COMMON NORMALS: no rashes or lesions noted and no wounds GENERAL SKIN EXAM: no rashes or lesions noted Course Vital Signs: Vital signs: Vital Signs Temperature 97.5 F L 05/18/25 19:28 Pulse Rate 100 05/18/25 19:49 Respiratory Rate 18 05/18/25 20:00 Blood Pressure 155/103 05/18/25 19:49 Pulse Oximetry 99 05/18/25 20:00 Oxygen Delivery Me thod Room Air 05/18/25 19:49 MDM - Abdominal Pain Medical Decision Making Patient presents here abdominal pain CT did show colitis no signs of appendicitis will start her on Augmentin she stable for discharge follow-up PCP return if worsening. Medical Records I reviewed the patient's medical records. Lab Data I reviewed the patient's lab results. 05/18/25 19:39 05/18/25 19:39 Labs/Radiology: Radiology Impressions Abdomen/Pelvis CT 05/18/25 19:36 IMPRESSION: 1. Enterocolitis 2. Enlarged bilateral ovaries with the left measuring 4.1 cm in the right measuring 3.2 cm. 3. Hepatomegaly Laboratory Results WBC 11.98 10^3/uL (3.29-11.43) H 05/18/25 19:39 RBC 4.90 10^6/uL (3.85-5.65) 05/18/25 19:39 Hgb 14.20 g/dL (11.27-16.99) 05/18/25 19:39 Hct 42.7 % (36-47) 05/18/25 19:39 MCV 87.1 fl (85-98) 05/18/25 19:39 MCH 29.0 pg (27-33) 05/18/25 19:39 MCHC 33.3 g/dL (30-55) 05/18/25 19:39 RDW 13.0 % (12.1-15.1) 05/18/25 19:39 Plt Count 329 10^3/cmm (157-399) 05/18/25 19:39 MPV 11.0 fL (7.4-10.4) H 05/18/25 19:39 Neut % (Auto) 55.3 % 05/18/25 19:39 Lymph % (Auto) 38.4 % 05/18/25 19:39 Bracken % (Auto) 4.8 % 05/18/25 19:39 Eos % (Auto) 0.6 % 05/18/25 19:39 Baso % (Auto) 0.3 % 05/18/25 19:39 Neut # (Auto) 6.62 10^3/uL (1.8-7.7) 05/18/25 19:39 Lymph # (Auto) 4.6 10^3/uL (0.8-4.8) 05/18/25 19:39 Bracken # (Auto) 0.6 10^3/uL (0.2-0.9) 05/18/25 19:39 Eos # (Auto) 0.1 10^3/uL (0.0-0.8) 05/18/25 19:39 Baso # (Auto) 0.0 10^3/uL (0.0-0.1) 05/18/25 19:39 Nucleated RBC % (auto) 0 % 05/18/25 19:39 Nucleated RBCs # 0.0 /100WBC 05/18/25 19:39 Sodium 139 mmol/L (136-145) 05/18/25 19:39 Potassium 4.1 mmol/L (3.5-5.1) 05/18/25 19:39 Chloride 105 mmol/L (98-107) 05/18/25 19:39 Carbon Dioxide 21 mmol/L (22-29) L 05/18/25 19:39 Anion Gap 17.1 (5-19) 05/18/25 19:39 BUN 13 mg/dL (6-20) 05/18/25 19:39 Creatinine 0.8 mg/dL (0.5-0.9) 05/18/25 19:39 GFR Calculation 87.4 mL/min (90-130) L 05/18/25 19:39 Glucose 94 mg/dL (65-115) 05/18/25 19:39 Calculated Osmolality 288 mOsm/kg (285-295) 05/18/25 19:39 Calcium 9.1 mg/dL (8.5-10.5) 05/18/25 19:39 Total Bilirubin 0.2 mg/dL (0.15-1.2) 05/18/25 19:39 AST 15 U/L (0-32) 05/18/25 19:39 ALT 20 U/L (0-33) 05/18/25 19:39 Alkaline Phosphatase 61 U/L (35-105) 05/18/25 19:39 Total Protein 8.1 g/dL (6.6-8.7) 05/18/25 19:39 Albumin 4.6 g/dL (3.5-5.2) 05/18/25 19:39 Globulin 3.5 g/dL (1.3-4.6) 05/18/25 19:39 Lipase 71 U/L (13-60) H 05/18/25 19:39 HCG, Qual Negative (Negative) 05/18/25 19:39 Urine Color Yellow (Yellow) 05/18/25 19:49 Urine Appearance Cloudy (CLEAR) A 05/18/25 19:49 Urine pH 5.0 (5-7) 05/18/25 19:49 Ur Specific [place] 1.021 (1.005-1.030) 05/18/25 19:49 Urine Protein Negative (Negative) 05/18/25 19:49 Urine Glucose (UA) Negative (Normal) 05/18/25 19:49 Urine Ketones Negative (Negative) 05/18/25 19:49 Urine Blood Negative (Negative) 05/18/25 19:49 Urine Nitrate Negative (Negative) 05/18/25 19:49 Urine Bilirubin Negative (Negative) 05/18/25 19:49 Urine Urobilinogen 0.2 mg/dL (Negative) 05/18/25 19:49 Ur Leukocyte Esterase 1+ (Negative) A 05/18/25 19:49 Urine RBC None /hpf (0-2) 05/18/25 19:49 Urine WBC 0-4 /hpf (0-5) H 05/18/25 19:49 Ur Squamous Epith Cells 0-4 /hpf (0-5) H 05/18/25 19:49 Amorphous Sediment Not Reportable 05/18/25 19:49 Urine Bacteria 1+ /hpf (NONE) H 05/18/25 19:49 All radiology interpretation(s) finalized by discharge Discharge Plan Discharge Patient Disposition: Home Clinical Impression: Colitis Condition: Stable Prescriptions: New hydrocodone-acetaminophen 5-325 mg tablet 1 tab PO Q6H PRN (Reason: pain) Qty: 14 0RF amoxicillin-pot clavulanate [Augmentin] 500-125 mg tablet 1 tab PO BID Qty: 14 0RF No Action metformin 500 mg tablet 1,000 mg PO BID albuterol sulfate [Ventolin HFA] 90 mcg/actuation HFA aerosol inhaler 2 puff inhalation Q6H PRN (Reason: shortness of breath or wheezing) Qty: 8.5 0RF atorvastatin [Lipitor] 20 mg tablet 20 mg PO DAILY Mounjaro 5 mg/0.5 mL pen injector SUBCUT ibuprofen 600 mg tablet 600 mg PO TID PRN (Reason: pain) Qty: 30 0RF Discharge Orders: Discharge ED (Routine); Ordered 05/18/25 Ordered By: Roz Trujillo Discharge Diet: Advance as tolerated Discharge Activity: Resume usual activity Patient Instructions: Colitis (ED) Print Language: Namibian Coding Level of Care Code ED Curator Of Manuscripts for Sandeep Gonzalez
[2025-05-18 19:49] VITALS: BP 155/103; PULSE 100; O2SAT 97
[2025-05-18 19:49] LABS: Hematocrit 42.7 % (36-47); Hemoglobin 14.20 g/dL (11.27-16.99); Mean Corpuscular HGB Conc 33.3 g/dL (30-55); Mean Corpuscular Hemoglobin 29.0 pg (27-33); Mean Corpuscular Volume 87.1 fl (85-98); Nucleated Red Blood Cells % 0 %; Platelet Count 329 10^3/cmm (157-399); Red Blood Count 4.90 10^6/uL (3.85-5.65); White Blood Count 11.98 10^3/uL (3.29-11.43)
[2025-05-18 20:00] VITALS: RESP 18; O2SAT 99
[2025-05-18] MEDS: ondansetron 2 mg/ML SDV 2 mL 4 MG IVP (20:00)
[2025-05-18] MEDS: morphine 4 mg/mL SDV 1 mL IVP (20:00)
[2025-05-18 20:10] LABS: Alanine Aminotransferase 20 U/L (0-33); Albumin Level 4.6 g/dL (3.5-5.2); Alkaline Phosphatase 61 U/L (35-105); Anion Gap 17.1 (5-19); Aspartate Amino Transferase 15 U/L (0-32); Blood Urea Nitrogen 13 mg/dL (6-20); Calcium 9.1 mg/dL (8.5-10.5); Carbon Dioxide 21 mmol/L (22-29); Chloride 105 mmol/L (98-107); Creatinine Clr Calc Pharmacy 126.9453; Globulin 3.5 g/dL (1.3-4.6); Glucose 94 mg/dL (65-115); Lipase 71 U/L (13-60); Osmolality Calculated 288 mOsm/kg (285-295); Potassium 4.1 mmol/L (3.5-5.1); Sodium 139 mmol/L (136-145); Total Protein 8.1 g/dL (6.6-8.7)
[2025-05-18 20:11] LABS: Glucose Urine UA Negative (Normal); Nitrate Urine Negative (Negative); Specific Gravity, Urine 1.021 (1.005-1.030)
[2025-05-18 20:17] LABS: HCG, Serum Qual Negative (Negative)
[2025-05-18] MEDS: iohexol 350 mg/mL 500 mL Btl (per mL) IV (20:34)
[2025-05-18 20:40] LABS: Add Urine Microscopic? YES; UA Manual Slide Review YES
[2025-05-18 21:18] VITALS: BP 118/56; PULSE 74; O2SAT 85
== END 2025-05-18 21:30 | disposition home or self-care (01) ==
PROVIDERS: Emergency Provider Emergency Medicine
DX: K52.9 Noninfective gastroenteritis and colitis, unspecified (principal); Z79.84 Long term (current) use of oral hypoglycemic drugs
CPT/HCPCS: 74177; 80053; 81001; 83690; 84703; 85025; 96374; 96375; 99285; J2270; J2405

== ENCOUNTER 2025-09-24 20:52 | Emergency (ER) | payer OTHER, SELFPAY ==
--- OUTSIDE RECORDS SUMMARY | 2025-09-24 20:58 | XMS_ITS | Encounter Summary ---
Author Organization [facility] Address [address] [place] [address] Care Team Providers Care Professional Advisor Name Role Phone Elijah Arevalo DO Primary Care Provider [phone] Encounter Details Date Type Department Care Team (Late st Contact Info) Description 01/13/2006 Outpatient Historical HIS IN BED Logan Ordoñez MD [address] [place] [address] [phone] Pain in Joint, Pelvic Region and Thigh (Primary Dx) Social History Tobacco Use Types Packs/Day Years Used Date Smoking Tobacco: Never Assessed Comments Unknown Sex and Gender Information Value Date Recorded Sex Assigned at Not on file 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
--- OUTSIDE RECORDS SUMMARY | 2025-09-24 20:58 | XMS_ITS | Clinical Summary ---
Author Organization [facility] Address [address] [place] [address] Care Team Providers Care Butcher Assistant Name Role Phone Elijah Arevalo Primary Care Provider Allergies No known active allergies Medications naproxen [...] (VITAMIN B-12 ORAL) Take by mouth. 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
--- OUTSIDE RECORDS SUMMARY | 2025-09-24 20:58 | XMS_ITS | Clinical Summary ---
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
--- OUTSIDE RECORDS SUMMARY | 2025-09-24 20:58 | XMS_ITS | Clinical Summary ---
Author Organization [facility] Address [address] [place] [address] Phone Care Team Providers Care Talend Etl Developer Name Role Phone Pcp, No Primary Care [...] Cancer Screening 02/05/2021 Flu Vaccine (#1) 06/01/2025 Influenza Vaccine 06/01/2025 Insurance [employer] [facility] Care Teams Talend Etl Developer Relationship Specialty Start Date End Date Pcp, No PCP - General 01/11/19
[2025-09-24 20:59] VITALS: BP 142/108; PULSE 120; RESP 18; TEMP 37.3; O2SAT 97; BMI 42.5
--- NOTE | 2025-09-25 01:32 | CTR_ITS ---
PROCEDURE INFORMATION: Exam: CT Abdomen And Pelvis With Contrast Exam date and time: 09/25/2025 2:04 AM Age: 25 years old Clinical indication: Abdominal pain; Localized; Left lower quadrant (llq); C/O llq pain. History of colitis. TECHNIQUE: Imaging protocol: Computed tomography of the abdomen and pelvis with contrast. Radiation optimization: All CT scans at this facility use at least one of these dose optimization techniques: automated exposure control; mA and/or kV adjustment per patient size (includes targeted exams where dose is matched to clinical indication); or iterative reconstruction. Contrast material: OMNI 350; Contrast volume: 100 ml; Contrast route: INTRAVENOUS (IV); COMPARISON: CT abdomen pelvis w con* [id number] 05/18/2025 8:30 PM RADIATION DOSE METRICS: Total DLP (mGy-cm): 1078.84 FINDINGS: Liver: Normal. No mass. Gallbladder and biliary ducts: Normal. No calcified stones. No ductal dilation. Pancreas: Normal. No ductal dilation. Spleen: Normal. No splenomegaly. Adrenal glands: Normal. No mass. Kidneys and ureters: Normal. No hydronephrosis. Stomach and bowel: Acute diverticulitis of the sigmoid colon, consistent with moderate peridiverticular inflammation. No perforation or abscess. Appendix: No evidence of appendicitis. Intraperitoneal space: Unremarkable. No free air. No significant fluid collection. Vasculature: Unremarkable. No abdominal aortic aneurysm. Lymph nodes: Unremarkable. No enlarged lymph nodes. Urinary bladder: Unremarkable as visualized. Reproductive: Left ovarian cyst measures 3.5 x 2.4 cm. Bones/joints: Unremarkable. No acute fracture. Soft tissues: Unremarkable. CT/CT abdomen pelvis w con* [id number] IMPRESSION: Acute diverticulitis of the sigmoid colon, consistent with moderate peridiverticular inflammation. No perforation or abscess.
--- NOTE | 2025-09-25 01:41 | W.ED.ABDPA2 ---
HPI - Abdominal Pain General: Chief Complaint: Abdominal Pain Stated Complaint: severe low left pain. n/v no bowel Time Seen by Provider: 09/25/25 01:22 History of Present Illness: This 25-year-old female presents with severe pain across her lower abdomen that is particularly worse on the left side. The pain is accompanied by back pain and urinary difficulties, with the patient reporting intermittent ability to urinate but complete inability to have a bowel movement for the past two days. She experienced a fever of 102.2?F this morning, which she treated with Tylenol. The patient has a known history of colitis and initially suspected this might be a recurrence of her condition. She attempted self-treatment with leftover hydrocodone from a previous colitis episode, taking it at approximately 4 PM, but experienced no pain relief. She denies vomiting but reports nausea. She denies any recent abdominal surgeries. When questioned about her previous colitis episodes, she recalls having blood in her stool, which occurred approximately 40 minutes prior to this visit. She denies recent sick contacts but had strep throat approximately one month ago. Related Data Home Medications ?Medication ?Instructions ?Recorded ?Confirmed atorvastatin 20 mg tablet (Lipitor) 20 mg PO DAILY 12/21/24 08/09/25 metformin 500 mg tablet 1,000 mg PO BID 12/31/24 08/09/25 buspirone 5 mg tablet mg PO 08/09/25 08/09/25 sertraline 50 mg tablet mg PO 08/09/25 08/09/25 tirzepatide 12.5 mg/0.5 mL mg SUBCUT 08/09/25 08/09/25 subcutaneous pen injector (Hiwot) Previous Rx's ?Medication ?Instructions ?Recorded ibuprofen 600 mg tablet 600 mg PO TID PRN pain #30 tabs 12/21/24 amoxicillin 875 mg tablet 875 mg PO BID 10 days #20 tabs 08/09/25 ciprofloxacin HCl 500 mg tablet 500 mg PO BID #20 tabs 09/25/25 metronidazole 500 mg tablet 500 mg PO Q8H 10 days #30 tabs 09/25/25 ondansetron 4 mg disintegrating 4 mg PO Q6H PRN nausea and 09/25/25 tablet vomiting #14 tabs oxycodone-acetaminophen 7.5 mg-325 1 tab PO Q6H PRN pain #10 tabs 09/25/25 mg tablet (Percocet) Allergies Allergy/AdvReac Type Severity Reaction Status Date / Time No Known Allergies Allergy Verified 08/09/25 13:15 PFSH ED PFSH: Medical History (Updated 09/25/25 @ 02:35 by Gennaro Harry DO) History of wheezing Bronchiolitis Social History Smoking and tobacco/nicotine status: never used tobacco/nicotine Physical Exam Const: COMMON NORMALS: no acute distress GENERAL APPEARANCE: cooperative; not frail appearing HENMT: COMMON NORMALS: normocephalic, atraumatic and Normal external nose present HEAD & SCALP: normocephalic and atraumatic FACE & SINUS: normal facial exam and face symmetric NOSE: Normal external nose present Eye: COMMON NORMALS: Equal, round and reactive pupils present and EOMs intact bilaterally PUPIL: Yes Equal, round and reactive pupils present Neck/C-Spine: GENERAL: Yes trachea midline Chest: CHEST: Yes Symmetrical chest wall rise Resp: COMMON NORMALS: normal respiratory effort, No retractions, No use of accessory muscles and clear to auscultation bilaterally AUSCULTATION: clear to auscultation bilaterally Cardio: COMMON NORMALS: regular rhythm RATE: tachycardic RHYTHM: regular rhythm GI: COMMON NORMALS: Normal to inspection, nondistended, normoactive bowel sounds present PALPATION: Yes Tenderness to palpation present (GI) (diffusely) and Yes Guarding due to palpation present (GI) Extremity: COMMON NORMALS: no pedal edema Neuro: JERMAINE COMA SCALE: document GCS findings [place] coma scale eye opening: Spontaneous Jermaine coma scale verbal response: Orientated [place] coma scale motor response: Obey commands Jermaine coma scale total score: 15 SENSORY EXAM: Yes extremities (intact) Psych: COMMON NORMALS: speech normal SPEECH: Yes normal speech Skin: COMMON NORMALS: no rashes or lesions noted GENERAL SKIN EXAM: no rashes or lesions noted Course Vital Signs: Vital signs: Vital Signs Temperature 99.1 F 09/24/25 20:59 Pulse Rate 103 H 09/25/25 02:58 Respiratory Rate 18 09/25/25 02:58 Blood Pressure 144/84 09/25/25 02:58 Pulse Oximetry 95 09/25/25 02:58 Oxygen Delivery Me thod Room Air 09/24/25 20:59 MDM - Abdominal Pain Medical Decision Making Patient is mildly tachycardic here. Improved after fluid bolus. Her lactic acid is normal. Her temperature is 99.1. She is normotensive. White blood cell count is 19. Other laboratory is not remarkable,, save a CRP of 188. Urinalysis is negative. CT shows diverticulitis. She was offered admission, but wishes to go home. She will be sent home on pain medication and nausea medication as well as metronidazole and Cipro. First dose was given here she knows to return for worsening symptoms despite treatment. She is stable for discharge currently. Lab Data 09/25/25 01:29 09/25/25 01:29 Labs/Radiology: Radiology Impressions Abdomen/Pelvis CT 09/25/25 01:32 IMPRESSION: Acute diverticulitis of the sigmoid colon, consistent with moderate peridiverticular inflammation. No perforation or abscess. Laboratory Results WBC 18.58 10^3/uL (3.29-11.43) H 09/25/25 01:29 RBC 4.51 10^6/uL (3.85-5.65) 09/25/25 01:29 Hgb 13.20 g/dL (11.27-16.99) 09/25/25 01:29 Hct 39.7 % (36-47) 09/25/25 01:29 MCV 88.0 fl (85-98) 09/25/25 01:29 MCH 29.3 pg (27-33) 09/25/25 01:29 MCHC 33.2 g/dL (30-55) 09/25/25 01:29 RDW 13.0 % (12.1-15.1) 09/25/25 01:29 Plt Count 308 10^3/cmm (157-399) 09/25/25 01:29 MPV 10.6 fL (7.4-10.4) H 09/25/25 01:29 Neut % (Auto) 80.3 % 09/25/25 01:29 Lymph % (Auto) 12.4 % 09/25/25 01:29 [place] % (Auto) 6.4 % 09/25/25 01:29 Eos % (Auto) 0.1 % 09/25/25 01:29 Baso % (Auto) 0.3 % 09/25/25 01:29 Neut # (Auto) 14.92 10^3/uL (1.8-7.7) H 09/25/25 01:29 Lymph # (Auto) 2.3 10^3/uL (0.8-4.8) 09/25/25 01:29 [place] # (Auto) 1.2 10^3/uL (0.2-0.9) H 09/25/25 01:29 Eos # (Auto) 0.0 10^3/uL (0.0-0.8) 09/25/25 01:29 Baso # (Auto) 0.1 10^3/uL (0.0-0.1) 09/25/25 01:29 Nucleated RBC % (auto) 0 % 09/25/25 01: Nucleated RBCs # 0.0 /100WBC 09/25/25 01:29 Sodium 136 mmol/L (136-145) 09/25/25 01:29 Potassium 4.2 mmol/L (3.5-5.1) 09/25/25 01: Chloride 99 mmol/L (98-107) 09/25/25 01:29 Carbon Dioxide 25 mmol/L (22-29) 09/25/25 01:29 Anion Gap 16.2 (5-19) 09/25/25 01:29 BUN 9 mg/dL (6-20) 09/25/25 01:29 Creatinine 0.8 mg/dL (0.5-0.9) 09/25/25 01:29 GFR Calculation 87.4 mL/min (90-130) L 09/25/25 01:29 Glucose 124 mg/dL (65-115) H 09/25/25 01:29 Calculated Osmolality 282 mOsm/kg (285-295) L 09/25/25 01:29 Lactic Acid 0.9 mmol/L (0.5-2.2) 09/25/25 01:29 Calcium 9.0 mg/dL (8.5-10.5) 09/25/25 01:29 Total Bilirubin 0.6 mg/dL (0.15-1.2) 09/25/25 01:29 AST 24 U/L (0-32) 09/25/25 01:29 ALT 35 U/L (0-33) H 09/25/25 01:29 Alkaline Phosphatase 77 U/L (35-105) 09/25/25 01: C-Reactive Protein 187.8 mg/L (0.0-4.9) H 09/25/25 01: Total Protein 7.9 g/dL (6.6-8.7) 09/25/25 01: Albumin 4.2 g/dL (3.5-5.2) 09/25/25: Globulin 3.7 g/dL (1.3-4.6) 09/25/25 01: HCG, Qual Negative (Negative) 09/25/25 01:29 Urine Color Yellow (Yellow) 09/25/25 00:50 Urine Appearance Clear (CLEAR) 09/25/25 00:50 Urine pH 5.5 (5-7) 09/25/25 00:50 Ur Specific [place] 1.019 (1.005-1.030) 09/25/25 00:50 Urine Protein Trace (Negative) A 09/25/25 00:50 Urine Glucose (UA) Negative (Normal) 09/25/25 00:50 Urine Ketones Negative (Negative) 09/25/25 00:50 Urine Blood Negative (Negative) 09/25/25 00:50 Urine Nitrate Negative (Negative) 09/25/25 00:50 Urine Bilirubin Negative (Negative) 09/25/25 00:50 Urine Urobilinogen 0.2 mg/dL (Negative) 09/25/25 00:50 Ur Leukocyte Esterase Negative (Negative) 09/25/25 00:50 Urine RBC 11-20 /hpf (0-2) H 09/25/25 00:50 Urine WBC 0-5 /hpf (0-5) 09/25/25 00:50 Ur Squamous Epith Cells 0-5 /hpf (0-5) 09/25/25 00:50 Amorphous Sediment Not Reportable 09/25/25 00:50 Urine Bacteria None seen /hpf (NONE) 09/25/25 00:50 Hyaline Casts 0.40 /lpf 09/25/25 00:50 All radiology interpretation(s) finalized by discharge Discharge Plan Discharge Patient Disposition: Home Clinical Impression: Diverticulitis Condition: Stable Prescriptions: New oxycodone-acetaminophen [Percocet] 7.5-325 mg tablet 1 tab PO Q6H PRN (Reason: pain) Qty: 10 0RF metronidazole 500 mg tablet 500 mg PO Q8H 10 Days Qty: 30 0RF ciprofloxacin HCl 500 mg tablet 500 mg PO BID Qty: 20 0RF ondansetron 4 mg tablet,disintegrating 4 mg PO Q6H PRN (Reason: nausea and vomiting) Qty: 14 0RF No Action metformin 500 mg tablet 1,000 mg PO BID atorvastatin [Lipitor] 20 mg tablet 20 mg PO DAILY ibuprofen 600 mg tablet 600 mg PO TID PRN (Reason: pain) Qty: 30 0RF buspirone 5 mg tablet PO sertraline 50 mg tablet PO Mounjaro 12.5 mg/0.5 mL pen injector SUBCUT amoxicillin 875 mg tablet 875 mg PO BID 10 Days Qty: 20 0RF Discharge Orders: Discharge ED (Routine); Ordered 09/25/25 Ordered By: Gennaro Harry Patient Instructions: Diverticulitis (ED), Abdominal Pain (ED), Opioid Safety, Pain Management, Patient Portal & Ismael Instructions Activity Restrictions/Additional Instructions: Antibiotics as directed. Pain medication and nausea medication for symptoms. Return for problems such as fever greater than 100 despite 3-4 doses of antibiotics, worsening pain despite treatment, vomiting liquids or medications, any other concerning symptoms. Print Language: Citizen [place] Coding Level of Care Code ED Mobile Application Development Lead for Sandeep Gonzalez
[2025-09-25 01:47] LABS: Hematocrit 39.7 % (36-47); Hemoglobin 13.20 g/dL (11.27-16.99); Mean Corpuscular HGB Conc 33.2 g/dL (30-55); Mean Corpuscular Hemoglobin 29.3 pg (27-33); Mean Corpuscular Volume 88.0 fl (85-98); Nucleated Red Blood Cells % 0 %; Platelet Count 308 10^3/cmm (157-399); Red Blood Count 4.51 10^6/uL (3.85-5.65); White Blood Count 18.58 10^3/uL (3.29-11.43)
[2025-09-25 01:57] LABS: Glucose Urine UA Negative (Normal); Nitrate Urine Negative (Negative); Specific Gravity, Urine 1.019 (1.005-1.030)
[2025-09-25 01:57] LABS: Albumin Level 4.2 g/dL (3.5-5.2); Alkaline Phosphatase 77 U/L (35-105); Anion Gap 16.2 (5-19); Aspartate Amino Transferase 24 U/L (0-32); Blood Urea Nitrogen 9 mg/dL (6-20); Calcium 9.0 mg/dL (8.5-10.5); Carbon Dioxide 25 mmol/L (22-29); Chloride 99 mmol/L (98-107); Globulin 3.7 g/dL (1.3-4.6); Glucose 124 mg/dL (65-115); Lactic Sepsis W/Reflex 0.9 mmol/L (0.5-2.2); Osmolality Calculated 282 mOsm/kg (285-295); Potassium 4.2 mmol/L (3.5-5.1); Sodium 136 mmol/L (136-145); Total Protein 7.9 g/dL (6.6-8.7)
[2025-09-25] MEDS: ondansetron 2 mg/ML SDV 2 mL 4 MG IVP (01:59)
[2025-09-25] MEDS: morphine 4 mg/mL SDV 1 mL IVP (01:59)
[2025-09-25 02:02] LABS: Add Urine Microscopic? YES
[2025-09-25] MEDS: iohexol 350 mg/mL 500 mL Btl (per mL) IV (02:06)
[2025-09-25 02:08] LABS: Alanine Aminotransferase 35 U/L (0-33)
[2025-09-25 02:13] LABS: HCG, Serum Qual Negative (Negative)
[2025-09-25 02:58] VITALS: BP 144/84; PULSE 103; RESP 18; O2SAT 95
== END 2025-09-25 02:59 | disposition home or self-care (01) ==
PROVIDERS: Emergency Provider Emergency Medicine
DX: K57.32 Diverticulitis of large intestine without perforation or abscess without bleeding (principal); Z79.84 Long term (current) use of oral hypoglycemic drugs
CPT/HCPCS: 36415; 74177; 80053; 81001; 83605; 84703; 85025; 86140; 87040; 96374; 96375; 99285; J1885; J2270; J2405; J7030; J9999